=== PATIENT | female | born 1930 | race Asian ===

== ENCOUNTER → 2016-10-29 | Outpatient (CLI) | payer MEDICARE, BC ==
[2016-10-29 08:13] LABS: PROTHROMBIN TIME 45.4 SEC (11.4-15.4)
== END ==
LOC: OD 07:03
PROVIDERS: ATTEND Internal Medicine
DX: I48.0 Paroxysmal atrial fibrillation (principal)
CPT/HCPCS: 36415; 85610

== ENCOUNTER → 2016-11-08 | Outpatient (CLI) | payer MEDICARE, BC | LOC: OD 07:09 | PROVIDERS: ATTEND Internal Medicine | DX: I48.0 Paroxysmal atrial fibrillation (principal) | CPT/HCPCS: 36415; 85610 ==

== ENCOUNTER 2016-11-14 09:05 | Inpatient (IN) | payer MEDICARE, BC ==
[2016-11-14] MEDS ORDERED: NORMAL SALINE 1000 ML 1,000 ML IV ONE (10:11)
--- NOTE | 2016-11-14 10:34 | ER Document Report ---
ED General - General Chief Complaint: Cold Symptoms Stated Complaint: COLD SYMPTOMS Mode of Arrival: Ambulatory Information source: Patient, Relative Notes: 86-year-old female presents with complaints of cough sneezing and runny nose over the past 3 days with weakness today. She denies any chest pain shortness breath difficulty breathing nausea vomiting fevers or chills TRAVEL OUTSIDE OF THE [place] IN LAST 30 DAYS: No - HPI Onset: Other - Three-day duration Onset/Duration: Persistent Quality of pain: No pain Severity: Mild Pain Level: Denies Associated symptoms: Nonproductive cough, Sinus pain/drainage Exacerbated by: Denies Relieved by: Denies Similar symptoms previously: No Recently seen / treated by doctor: No - Related Data Allergies/Adverse Reactions: NSAIDS (Non-Steroidal Anti-Inflamma [Nsaids] Allergy (Severe, Verified 11/14/16 09:22) Past Medical History - Social History Smoking Status: Former Smoker Cigarette use (# per day): No Chew tobacco use (# tins/day): No Smoking Education Provided: No Frequency of alcohol use: None Drug Abuse: None Family History: Reviewed & Not Pertinent Patient has suicidal ideation: No Patient has homicidal ideation: No - Past Medical History Cardiac Medical History: Reports: Hx Atrial Fibrillation, Hx Coronary Artery Disease, Hx Hypertension Denies: Hx Heart Attack Pulmonary Medical History: Reports: Hx Asthma Denies: Hx Bronchitis, Hx COPD, Hx Pneumonia, Hx Tuberculosis Neurological Medical History: Denies: Hx Cerebrovascular Accident, Hx Seizures Renal/ Medical History: Denies: Hx Peritoneal Dialysis Musculoskeltal Medical History: 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 Denies: Hx Hysterectomy, Hx Pacemaker - Immunizations Hx Diphtheria, Pertussis, Tetanus Vaccination: Yes Hx Pneumococcal Vaccination: 08/27/07 Review of Systems - Review of Systems Notes: REVIEW OF SYSTEMS: CONSTITUTIONAL : Denies fever, chills, or sweats. Denies recent illness. EENT: Admits runny nose CARDIOVASCULAR: Denies chest pain. Denies palpitations or racing or irregular heart beat. Denies ankle edema. RESPIRATORY: Admits to cough GASTROINTESTINAL: Denies abdominal pain or distention. Denies nausea, vomiting , or diarrhea. Denies blood in vomitus, stools, or per rectum. Denies black, tarry stools. Denies constipation. GENITOURINARY: Denies difficulty urinating, painful urination, burning, frequency, blood in urine, or discharge. FEMALE GENITOURINARY: Denies vaginal bleeding, heavy or abnormal periods, irregular periods. Denies vaginal discharge or odor. MUSCULOSKELETAL: Denies back or neck pain or stiffness. Denies joint pain or swelling. SKIN: Denies rash, lesions or sores. HEMATOLOGIC : Denies easy bruising or bleeding. LYMPHATIC: Denies swollen, enlarged glands. NEUROLOGICAL: Admits weakness PSYCHIATRIC: Denies anxiety or stress. Denies depression, suicidal ideation, or homicidal ideation. ALL OTHER SYSTEMS REVIEWED AND NEGATIVE. Dictation was performed using [employer] voice recognition software PHYSICAL EXAMINATION: GENERAL: Elderly frail appearing female no acute distress HEAD: Atraumatic, normocephalic. EYES: Pupils equal round and reactive to light, extraocular movements intact, conjunctiva are normal. ENT: Nares patent, oropharynx clear without exudates. Moist mucous membranes. NECK: Normal range of motion, supple without lymphadenopathy LUNGS: Breath sounds clear to auscultation bilaterally and equal. No wheezes rales or rhonchi. HEART: Regular rate and rhythm without murmurs ABDOMEN: Soft, nontender, nondistended abdomen. No guarding, no rebound. No masses appreciated. Female : deferred Musculoskeletal: Normal range of motion, no pitting or edema. No cyanosis. NEUROLOGICAL: Cranial nerves grossly intact. Normal speech, normal gait. Normal sensory, motor exams PSYCH: Normal mood, normal affect. SKIN: Warm, Dry, normal turgor, no rashes or lesions noted. Physical Exam - Vital signs Vitals: Temp Pulse Resp BP Pulse Ox 98.7 F 95 16 141/89 H 94 11/14/16 09:11 11/14/16 09:11 11/14/16 09:11 11/14/16 09:11 11/14/16 09:11 Course - Re-evaluation Re-evalutation: 11/14/16 13:55 chest xray is soncistant with pneumonia which would explain pts presentation will admit due to risk factors and weakness and decreased po intake - Vital Signs Vital signs: Temp Pulse Resp BP Pulse Ox 98.7 F 95 16 141/89 H 94 11/14/16 09:11 11/14/16 09:11 11/14/16 09:11 11/14/16 09:11 11/14/16 09:11 - Laboratory Result Diagrams: 11/14/16 10:05 11/14/16 10:05 Laboratory results interpreted by me: 11/14/16 11/14/16 11/14/16 10:05 10:05 10:05 MCHC 31.7 L Seg Neutrophils % 79.3 H Lymphocytes % 11.9 L PT 29.9 H Glucose 113 H Total Bilirubin 2.0 H AST 46 H - Diagnostic Test Radiology reviewed: Image reviewed, Reports reviewed Discharge - Discharge Clinical Impression: Weakness Pneumonia Qualifiers: Pneumonia type: due to unspecified organism Laterality: right Lung location: lower lobe of lung Qualified Code(s): J18.1 - Lobar pneumonia, unspecified organism Condition: Stable Disposition: ADMITTED INPATIENT Admitting Provider: Hospitalist Unit Admitted: Telemetry
[2016-11-14 10:40] LABS: ABSOLUTE BASOPHILS # (AUTO) 0.1 10^3/uL (0.0-0.2); ABSOLUTE LYMPHOCYTES (AUTO) 1.1 10^3/uL (0.5-4.7); ABSOLUTE MONOCYTES (AUTO) 0.7 10^3/uL (0.1-1.4); ABSOLUTE NEUT (AUTO) 7.4 10^3/uL (1.7-8.2); BASOPHILS % (AUTO) 0.8 % (0-2); EOSINOPHILS % (AUTO) 0.1 % (0-6); HEMATOCRIT 45.9 % (36.0-47.0); HEMOGLOBIN 14.5 g/dL (12.0-15.5); HGB HCT DIFFERENCE -2.4; LYMPHOCYTES % (AUTO) 11.9 % (13-45); MEAN CORPUSCULAR HEMOGLOBIN 28.8 pg (27.0-33.4); MEAN CORPUSCULAR HGB CONC 31.7 g/dL (32.0-36.0); MEAN CORPUSCULAR VOLUME 91 fl (80-97); MONOCYTES % (AUTO) 7.9 % (3-13); RED BLOOD COUNT 5.04 10^6/uL (3.72-5.28); RED CELL DISTRIBUTION WIDTH 13.2 % (11.5-14.0); SEGMENTED NEUTROPHILS % (AUTO) 79.3 % (42-78); WHITE BLOOD COUNT 9.3 10^3/uL (4.0-10.5)
[2016-11-14 11:14] LABS: ALANINE AMINOTRANSFERASE 34 U/L (9-52); ALBUMIN 4.5 g/dL (3.5-5.0); ALKALINE PHOSPHATASE 71 U/L (38-126); ANION GAP 12 (5-19); ASPARTATE AMINO TRANSFERASE 46 U/L (14-36); BLOOD UREA NITROGEN 13 mg/dL (7-20); CALCIUM 9.2 mg/dL (8.4-10.2); CARBON DIOXIDE 27 mmol/L (22-30); CHLORIDE 101 mmol/L (98-107); CREATININE RESULT 0.69 mg/dL (0.52-1.25); GLUCOSE 113 mg/dL (75-110); POTASSIUM 4.4 mmol/L (3.6-5.0); SODIUM 139.5 mmol/L (137-145); TOTAL PROTEIN 8.2 g/dL (6.3-8.2)
[2016-11-14] MEDS ORDERED: CEFTRIAXONE 2 GM/D5W RTU 50 ML IV ONE (11:24)
[2016-11-14 11:31] LABS: CREATINE KINASE MB 0.56 ng/mL (<4.55)
[2016-11-14 11:35] LABS: TROPONIN I < 0.012 ng/mL
[2016-11-14] MEDS ORDERED: ACETAMINOPHEN 325 MG TABLET PO PRN (12:25)
[2016-11-14] MEDS ORDERED: IPRATROPIUM/ALBUTEROL 0.5-2.5 MG/3 ML AMPUL NEB PRN (12:25)
[2016-11-14] MEDS ORDERED: NORMAL SALINE 1000 ML 1,000 ML IV PRN (12:25)
[2016-11-14] MEDS ORDERED: BUDESONIDE/FORMOTEROL 160-4.5 MCG 60 PUFF/6 GM MDI IH ONE (12:54)
[2016-11-14 13:06] LABS: PROTHROMBIN TIME 29.9 SEC (11.4-15.4)
[2016-11-14] MEDS ORDERED: HEPARIN SOD (PORCINE) 5,000 UNIT/ML 1 ML SYRINGE SUBCUT SCH (14:00)
[2016-11-14] MEDS: METHYLPREDNISOLONE INJ 125 MG/2 ML SDV IV SCH ×2 (14:30→22:34)
[2016-11-14 14:54] LABS: APPEARANCE,URINE CLEAR; BILIRUBIN,URINE NEGATIVE (NEGATIVE); GLUCOSE, URINE NEGATIVE (NEGATIVE); KETONES,URINE 20 mg/dL (NEGATIVE); LEUKOCYTE ESTERASE,URINE NEGATIVE (NEGATIVE); NITRITE,URINE NEGATIVE (NEGATIVE); PROTEIN,URINE 30 mg/dL (NEGATIVE); URINE SPECIFIC GRAVITY 1.013; UROBILINOGEN,URINE NEGATIVE mg/dL (<2.0)
--- NOTE | 2016-11-14 14:55 | PDOC H&P ---
History of Present Illness Admission Date/PCP: 11/14/16 12:25 CELIA DORANTES MD Patient complains of: Cough and shortness of breath History of Present Illness: GENNY INFANTE is a 86 year old female with a history of chronic controlled asthma presented to [facility] ED this morning accompanied by her , complaining of worsen upper respiratory symptoms, cough and shortness of breath. She was found to have a right lower lobe infiltrate on chest xray. She was mildly tachycardic with a room air oxygen saturation of 91%. She states her symptoms began 4 days ago and have worsened despite using her rescue nebulizer and otc mucinex. She denies any fevers or chills. She denies any other symptoms. Her dyspnea has improved with one nebulizer treatment. Past Medical History Cardiac Medical History: Reports: Atrial Fibrillation, Coronary Artery Disease, Hypertension Denies: Myocardial Infarction Pulmonary Medical History: Reports: Asthma Denies: Bronchitis, Chronic Obstructive Pulmonary Disease (COPD), Pneumonia, Tuberculosis EENT Medical History: Reports: None Neurological Medical History: Reports: None Denies: Seizures Endocrine Medical History: Reports: None Renal/ Medical History: Reports: None Malignancy Medical History: Reports: None GI Medical History: Reports: None Musculoskeltal Medical History: Reports: Arthritis - r shoulder Skin Medical History: Reports: None Psychiatric Medical History: Reports: None Traumatic Medical History: Reports: None Hematology: Reports: Anemia Infectious Medical History: Reports: None Past Surgical History Past Surgical History: Reports: Cholecystectomy Denies: Hysterectomy, Pacemaker Social History Information Source: Patient Lives with: Spouse/Significant other Smoking Status: Former Smoker Number of Years Smokin Frequency of Alcohol Use: None Hx Recreational Drug Use: No Hx Prescription Drug Abuse: No - Advance Directive Resuscitation Status: Full Code Family History Family History: Hypertension Parental Family History Reviewed: Yes Children Family History Reviewed: Yes Sibling(s) Family History Reviewed.: Yes Medication/Allergy Home Medications: Albuterol Sulfate [Proair HFA] 1 puff PO QHS PRN 11/14/16 Furosemide [Lasix 20 mg Tablet] 20 mg PO DAILY 11/14/16 Metoprolol Tartrate [Lopressor 50 mg Tablet] 25 mg PO BID 11/14/16 [place]-3 Acid Ethyl Esters [Lovaza 1 gm Capsule] 1 gm PO DAILY 11/14/16 Simvastatin [Zocor 20 mg Tablet] 20 mg PO DAILY 11/14/16 Warfarin Sodium 5 mg PO Q3D 11/14/16 Allergies/Adverse Reactions: NSAIDS (Non-Steroidal Anti-Inflamma [Nsaids] Allergy (Severe, Verified 11/14/16 09:22) Review of Systems Constitutional: ABSENT: chills, fever(s), headache(s), weight gain, weight loss Eyes: ABSENT: visual disturbances Ears: ABSENT: hearing changes Cardiovascular: ABSENT: chest pain, dyspnea on exertion, edema, orthropnea, palpitations Respiratory: PRESENT: cough, dyspnea, sputum Gastrointestinal: ABSENT: abdominal pain, constipation, diarrhea, hematemesis, hematochezia, nausea, vomiting Genitourinary: ABSENT: dysuria, hematuria Musculoskeletal: ABSENT: joint swelling Neurological: ABSENT: abnormal gait, abnormal speech, confusion, dizziness, focal weakness, syncope Psychiatric: ABSENT: anxiety, depression, homidical ideation, suicidal ideation Hematologic/Lymphatic: ABSENT: easy bleeding, easy bruising Physical Exam Vital Signs: Temp Pulse Resp BP Pulse Ox 98.7 F 95 24 H 134/78 H 96 11/14/16 09:11 11/14/16 09:11 11/14/16 14:00 11/14/16 12:35 11/14/16 14:00 General appearance: PRESENT: no acute distress, well-developed, well-nourished Head exam: PRESENT: atraumatic, normocephalic Eye exam: PRESENT: conjunctiva pink, EOMI, PERRLA. ABSENT: scleral icterus Ear exam: PRESENT: normal external ear exam Mouth exam: PRESENT: moist, tongue midline Neck exam: ABSENT: carotid bruit, JVD, lymphadenopathy, thyromegaly Respiratory exam: PRESENT: decreased breath sounds - right base, rhonchi, symmetrical, unlabored, wheezes Cardiovascular exam: PRESENT: RRR. ABSENT: diastolic murmur, rubs, systolic murmur Pulses: PRESENT: normal dorsalis pedis pul Vascular exam: PRESENT: normal capillary refill GI/Abdominal exam: PRESENT: normal bowel sounds, soft. ABSENT: distended, guarding, mass, organolmegaly, rebound, tenderness Rectal exam: PRESENT: deferred Extremities exam: PRESENT: full ROM. ABSENT: calf tenderness, clubbing, pedal edema Neurological exam: PRESENT: alert, awake, oriented to person, oriented to place , oriented to time, oriented to situation, CN II-XII grossly intact. ABSENT: motor sensory deficit Psychiatric exam: PRESENT: appropriate affect, normal mood. ABSENT: homicidal ideation, suicidal ideation Skin exam: PRESENT: dry, intact, warm. ABSENT: cyanosis, rash Results Impressions: Chest X-Ray 11/14/16 09:32 IMPRESSION: New patchy infiltrate or trace pleural fluid right costophrenic angle. Heavy retrocardiac markings on the left also concerning for patchy infiltrate. 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 Tapering IV steroids (4) DVT prophylaxis Is this a current diagnosis for this admission?: YesPlan: Patient is on Coumadin - Time Time Spent: 50 to 70 Minutes Critical Time spent with patient: 25-34 minutes Medications reviewed and adjusted accordingly: Yes Anticipated discharge: Home
[2016-11-14] MEDS ORDERED: (PENDING PHARMACY ID) (Mometasone/Formoterol [Dulera 100 Mcg/5 Mcg Inhaler] 2 PUFF) IH SCH (18:00)
[2016-11-14] MEDS: METOPROLOL TARTRATE 50 MG TABLET PO SCH (18:23)
[2016-11-14] MEDS: GUAIFENESIN 600 MG TABLET.SA PO SCH (22:34)
[2016-11-14] MEDS: MONTELUKAST SODIUM 10 MG TABLET PO SCH (22:34)
[2016-11-14] MEDS: BUDESONIDE/FORMOTEROL 160-4.5 MCG 60 PUFF/6 GM MDI IH SCH (22:34)
[2016-11-14] MEDS: WARFARIN SODIUM 2.5 MG TABLET PO SCH (22:34)
[2016-11-15] MEDS: METHYLPREDNISOLONE INJ 125 MG/2 ML SDV IV SCH ×3 (06:10→22:46)
[2016-11-15] MEDS: METOPROLOL TARTRATE 50 MG TABLET PO SCH ×2 (06:11→17:53)
[2016-11-15 07:00] LABS: ABSOLUTE LYMPHOCYTES (AUTO) 1.2 10^3/uL (0.5-4.7); ABSOLUTE MONOCYTES (AUTO) 0.1 10^3/uL (0.1-1.4); ABSOLUTE NEUT (AUTO) 6.6 10^3/uL (1.7-8.2); BASOPHILS % (AUTO) 0.3 % (0-2); HEMATOCRIT 42.6 % (36.0-47.0); HGB HCT DIFFERENCE -0.6; LYMPHOCYTES % (AUTO) 14.8 % (13-45); MEAN CORPUSCULAR HEMOGLOBIN 29.5 pg (27.0-33.4); MEAN CORPUSCULAR HGB CONC 32.8 g/dL (32.0-36.0); MEAN CORPUSCULAR VOLUME 90 fl (80-97); MONOCYTES % (AUTO) 1.3 % (3-13); RED BLOOD COUNT 4.73 10^6/uL (3.72-5.28); RED CELL DISTRIBUTION WIDTH 12.8 % (11.5-14.0); SEGMENTED NEUTROPHILS % (AUTO) 83.6 % (42-78); WHITE BLOOD COUNT 7.9 10^3/uL (4.0-10.5)
[2016-11-15 07:19] LABS: ANION GAP 19 (5-19); BLOOD UREA NITROGEN 18 mg/dL (7-20); CALCIUM 9.1 mg/dL (8.4-10.2); CARBON DIOXIDE 19 mmol/L (22-30); CHLORIDE 105 mmol/L (98-107); CREATININE RESULT 0.69 mg/dL (0.52-1.25); GLUCOSE 166 mg/dL (75-110); POTASSIUM 3.9 mmol/L (3.6-5.0); SODIUM 142.9 mmol/L (137-145)
[2016-11-15] MEDS ORDERED: SIMVASTATIN 10 MG TABLET PO SCH (10:00)
[2016-11-15] MEDS: FUROSEMIDE 20 MG TABLET PO SCH (10:17)
[2016-11-15] MEDS: CEFTRIAXONE 1 GM/D5W RTU 50 ML IV SCH (10:17)
[2016-11-15] MEDS: GUAIFENESIN 600 MG TABLET.SA PO SCH ×2 (10:17→22:46)
[2016-11-15] MEDS: BUDESONIDE/FORMOTEROL 160-4.5 MCG 60 PUFF/6 GM MDI IH SCH ×2 (10:18→22:46)
[2016-11-15] MEDS: AZITHROMYCIN 500 MG in DEXTROSE 5%-WATER 250 ML IV SCH (11:14)
--- NOTE | 2016-11-15 16:34 | PDOC PROGRESS REPORT ---
Subjective Progress Note for:: 11/15/16 Subjective:: Patient is seen on morning rounds. She is sitting out of bed in chair. is at bedside. She continues to have congested cough but is able to be productive since starting nebulizer. She states her breathing is improved. She denies chest pain or dyspnea. She denies any nausea, vomiting, or diarrhea. Physical Exam Vital Signs: Temp Pulse Resp BP Pulse Ox 97.6 F 101 H 18 151/99 H 96 11/15/16 15:04 11/15/16 15:34 11/15/16 15:34 11/15/16 15:04 11/15/16 15:34 Pulse Oximeter Continuous Start: 11/14/16 12: 25 Freq: RTQ4 Status: Active Document 11/15/16 15:34 LDA (Rec: 11/15/16 15:35 [email or web address]) Pulse Oximetry Assessment Oxygen Saturation (92-100) 96 Oxygen Delivery Method Room Air Fraction of Inspired Oxygen (FIO2) 21 Equipment Usage Equipment in Use Continuous SpO2 Machine # [id number] Intake & Output 11/14/16 11/15/16 11/16/16 06:59 06:59 06:59 Intake Total 500 900 Output Total 500 Balance 500 400 Weight 60.1 kg General appearance: PRESENT: no acute distress, well-developed, well-nourished Head exam: PRESENT: atraumatic, normocephalic Eye exam: PRESENT: conjunctiva pink, EOMI, PERRLA. ABSENT: scleral icterus Ear exam: PRESENT: normal external ear exam Mouth exam: PRESENT: moist, tongue midline Neck exam: ABSENT: carotid bruit, JVD, lymphadenopathy, thyromegaly Respiratory exam: PRESENT: rhonchi, symmetrical, tachypnea. ABSENT: rales, wheezes Cardiovascular exam: PRESENT: RRR. ABSENT: diastolic murmur, rubs, systolic murmur Pulses: PRESENT: normal dorsalis pedis pul Vascular exam: PRESENT: normal capillary refill GI/Abdominal exam: PRESENT: normal bowel sounds, soft. ABSENT: distended, guarding, mass, organolmegaly, rebound, tenderness Rectal exam: PRESENT: deferred Extremities exam: PRESENT: full ROM. ABSENT: calf tenderness, clubbing, pedal edema Neurological exam: PRESENT: alert, awake, oriented to person, oriented to place , oriented to time, oriented to situation, CN II-XII grossly intact. ABSENT: motor sensory deficit Psychiatric exam: PRESENT: appropriate affect, normal mood. ABSENT: homicidal ideation, suicidal ideation Skin exam: PRESENT: dry, intact, warm. ABSENT: cyanosis, rash Results Laboratory Results: 11/15/16 06:36 11/15/16 06:36 11/15/16 11/15/16 06:36 06:36 WBC 7.9 RBC 4.73 Hgb 14.0 Hct 42.6 MCV 90 MCH 29.5 MCHC 32.8 RDW 12.8 Plt Count 181 Seg Neutrophils % 83.6 H Lymphocytes % 14.8 Monocytes % 1.3 L Eosinophils % 0.0 Basophils % 0.3 Absolute Neutrophils 6.6 Absolute Lymphocytes 1.2 Absolute Monocytes 0.1 Absolute Eosinophils 0.0 Absolute Basophils 0.0 Sodium 142.9 Potassium 3.9 Chloride 105 Carbon Dioxide 19 L Anion Gap 19 BUN 18 Creatinine 0.69 Est GFR ( Amer) > 60 Est GFR (Non-Af Amer) > 60 Glucose 166 H Calcium 9.1 Impressions: Chest X-Ray 11/14/16 09:32 IMPRESSION: New patchy infiltrate or trace pleural fluid right costophrenic angle. Heavy retrocardiac markings on the left also concerning for patchy infiltrate. Assessment & Plan - Diagnosis (1) Atrial fibrillation Qualifiers: Atrial fibrillation type: paroxysmal Qualified Code(s): I48.0 - Paroxysmal atrial fibrillation Plan: Patient has paroxymal atrial fibrillation. RVR increased her metoprolol 50 mg bid (2) Community acquired pneumonia Is this a current diagnosis for this admission?: YesPlan: Patient was placed on azithromycin, ceftriazone, nebulizer treatments and IV steroids. 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 Tapering IV steroids (4) DVT prophylaxis Is this a current diagnosis for this admission?: YesPlan: Patient is on Coumadin - Time Time Spent with patient: 25-34 minutes Critical Time spent with patient: 15-24 minutes Medications reviewed and adjusted accordingly: Yes Anticipated discharge: Home - Inpatient Certification Based on my medical assessment, after consideration of the patient's comorbidities, presenting symptoms, or acuity I expect that the services needed warrant INPATIENT care.: Yes I certify that my determination is in accordance with my understanding of Medicare's requirements for reasonable and necessary INPATIENT services [42 CFR 412.3e].: Yes
[2016-11-15] MEDS: WARFARIN SODIUM 2.5 MG TABLET PO SCH (22:46)
[2016-11-15] MEDS: MONTELUKAST SODIUM 10 MG TABLET PO SCH (22:46)
[2016-11-16] MEDS: METOPROLOL TARTRATE 50 MG TABLET PO SCH (05:36)
[2016-11-16] MEDS: METHYLPREDNISOLONE INJ 125 MG/2 ML SDV IV SCH (05:36)
[2016-11-16] MEDS: GUAIFENESIN 600 MG TABLET.SA PO SCH (09:30)
[2016-11-16] MEDS: FUROSEMIDE 20 MG TABLET PO SCH (09:30)
[2016-11-16] MEDS: BUDESONIDE/FORMOTEROL 160-4.5 MCG 60 PUFF/6 GM MDI IH SCH (09:31)
[2016-11-16] MEDS: CEFTRIAXONE 1 GM/D5W RTU 50 ML IV SCH (09:31)
[2016-11-16] MEDS ORDERED: METHYLPREDNISOLONE INJ 125 MG/2 ML SDV IV SCH (10:00)
[2016-11-16] MEDS: AZITHROMYCIN 500 MG in DEXTROSE 5%-WATER 250 ML IV SCH (10:27)
--- NOTE | 2016-11-16 11:13 | PDOC DISCHARGE SUMMARY ---
General - Admit/Disc Date/PCP Admission Date/Primary Care Provider: 11/14/16 12:25 CELIA DORANTES MD Discharge Date: 11/16/16 - Discharge Diagnosis (1) Atrial fibrillation Summary: Patient with chronic atrial fibrillation on Warfarin and Coumadin (2) Community acquired pneumonia Is this a current diagnosis for this admission?: YesSummary: Patient will be discharged on Ceftin 500 mg po bid x 8 days. 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 Is this a current diagnosis for this admission?: YesSummary: Prednisone taper, continue inhalers (4) DVT prophylaxis Is this a current diagnosis for this admission?: Yes - Additional Information Resuscitation Status: Full Code Discharge Diet: Regular Discharge Activity: Activity As Tolerated, Balance Activity w/Rest Home Medications: Albuterol Sulfate [Proair HFA] 1 puff PO QHS PRN 11/14/16 Furosemide [Lasix 20 mg Tablet] 20 mg PO DAILY 11/14/16 Metoprolol Tartrate [Lopressor 50 mg Tablet] 25 mg PO BID 11/14/16 [place]-3 Acid Ethyl Esters [Lovaza 1 gm Capsule] 1 gm PO DAILY 11/14/16 Simvastatin [Zocor 20 mg Tablet] 20 mg PO DAILY 11/14/16 Warfarin Sodium 5 mg PO Q3D 11/14/16 Acetaminophen [Tylenol 325 mg Tablet] 650 mg PO Q4HP PRN tablet 11/16/16 Cefuroxime Axetil [Ceftin 500 mg Tablet] 500 mg PO BID #16 tablet 11/16/16 Guaifenesin [Mucinex Sr 600 mg Tablet.sa] 600 mg PO Q12 #20 tablet.sa 11/16/16 Prednisone [Deltasone] 20 mg PO ASDIR PRN #9 tablet 11/16/16 Warfarin Sodium [Coumadin 2.5 mg Tablet] 2.5 mg PO Q3DAYS@2200 tablet 11/16/16 History of Present Illness History of Present Illness: GENNY INFANTE is a 86 year old female with a history of chronic controlled asthma presented to [facility] ED this morning accompanied by her , complaining of worsen upper respiratory symptoms, cough and shortness of breath. She was found to have a right lower lobe infiltrate on chest xray. She was mildly tachycardic with a room air oxygen saturation of 91%. She states her symptoms began 4 days ago and have worsened despite using her rescue nebulizer and otc mucinex. She denies any fevers or chills. She denies any other symptoms. Her dyspnea has improved with one nebulizer treatment. Hospital Course Hospital Course: Patient was referred to the Hospitalist service for admission from the ER physician. She was admitted to the telemetry unit. She was started on broad spectrum antibiotics, and nebulizer treatments. Her oxygenation improved. She was able to be weaned from the oxygen the following day. Her cough continued to improve. She remained afebrile. Today she has been transitioned to oral antibiotic therapy and will be discharged home. Physical Exam Vital Signs: Temp Pulse Resp BP Pulse Ox 97.6 F 116 H 20 80/61 L 97 11/16/16 08:14 11/16/16 08:14 11/16/16 08:14 11/16/16 08:14 11/16/16 08:14 Pulse Oximeter Continuous Start: 11/14/16 12: 25 Freq: RTQ4 Status: Active Document 11/16/16 04:54 [facility] (Rec: 11/16/16 04:54 [facility] [id number]) Pulse Oximetry Assessment Equipment Usage Equipment Standby Continuous SpO2 Machine # [id number] Intake & Output 11/15/16 11/16/16 11/17/16 06:59 06:59 06:59 Intake Total 500 1510 120 Output Total 1000 Balance 500 510 120 Weight 60.1 kg 60.1 kg General appearance: PRESENT: no acute distress, well-developed, well-nourished Head exam: PRESENT: atraumatic, normocephalic Eye exam: PRESENT: conjunctiva pink, EOMI, PERRLA. ABSENT: scleral icterus Ear exam: PRESENT: normal external ear exam Mouth exam: PRESENT: moist, tongue midline Neck exam: PRESENT: carotid bruit Respiratory exam: PRESENT: rhonchi, symmetrical, unlabored Cardiovascular exam: PRESENT: irregular rhythm Pulses: PRESENT: normal dorsalis pedis pul Vascular exam: PRESENT: normal capillary refill GI/Abdominal exam: PRESENT: normal bowel sounds, soft. ABSENT: distended, guarding, mass, organolmegaly, rebound, tenderness Rectal exam: PRESENT: deferred Extremities exam: PRESENT: full ROM. ABSENT: calf tenderness, clubbing, pedal edema Neurological exam: PRESENT: alert, awake, oriented to person, oriented to place , oriented to time, oriented to situation, CN II-XII grossly intact. ABSENT: motor sensory deficit Psychiatric exam: PRESENT: appropriate affect, normal mood. ABSENT: homicidal ideation, suicidal ideation Skin exam: PRESENT: dry, intact, warm. ABSENT: cyanosis, rash Results Laboratory Results: 11/15/16 06:36 11/15/16 06:36 Impressions: Chest X-Ray 11/14/16 09:32 IMPRESSION: New patchy infiltrate or trace pleural fluid right costophrenic angle. Heavy retrocardiac markings on the left also concerning for patchy infiltrate. Qualifiers PATEINT BEING DISCHARGED WITH ANY OF THE FOLLOWING DIAGNOSIS?: No HF Pt with Afib discharged with Warfarin?: Yes Plan Discharge Plan: Patient will be discharged home with . Follow up with primary care provider in one week. Time Spent: Less than 30 Minutes
[2016-11-16 11:57] VITALS: BP 141/96
[2016-11-16] MEDS ORDERED: WARFARIN SODIUM 2.5 MG TABLET PO SCH (22:00)
== END 2016-11-16 13:49 | disposition home or self-care (01) | DRG 195 ==
LOC: ER 09:05 → EH 12:25 → UNDOADMIN 12:40 → EH 12:40 → 4N 16:07
PROVIDERS: ADMIT Family Medicine; ATTEND Family Medicine
DX: J18.1 Lobar pneumonia, unspecified organism (principal); J45.909 Unspecified asthma, uncomplicated; I25.10 Atherosclerotic heart disease of native coronary artery without angina pectoris; I10 Essential (primary) hypertension; I48.0 Paroxysmal atrial fibrillation; M19.90 Unspecified osteoarthritis, unspecified site; Z79.02 Long term (current) use of antithrombotics/antiplatelets; Z79.51 Long term (current) use of inhaled steroids; Z87.891 Personal history of nicotine dependence
CPT/HCPCS: 36415; 71020; 80048; 80053; 81001; 82550; 82553; 84484; 85025; 85610; 87070; 87205; 87804; 94762; 94799; J0456; J0696; J2930; J3490; J7030; J7060

== ENCOUNTER → 2016-12-04 | Outpatient (CLI) | payer MEDICARE, BC ==
[2016-12-04 11:55] LABS: PROTHROMBIN TIME 55.9 SEC (11.4-15.4)
== END ==
LOC: OD 10:27
PROVIDERS: ATTEND Internal Medicine
DX: I48.0 Paroxysmal atrial fibrillation (principal)
CPT/HCPCS: 36415; 85610

== ENCOUNTER → 2016-12-31 | Outpatient (CLI) | payer MEDICARE, BC ==
[2016-12-31 08:48] LABS: PROTHROMBIN TIME 66.6 SEC (11.4-15.4)
== END ==
LOC: OD 07:35
PROVIDERS: ATTEND Internal Medicine
DX: I48.0 Paroxysmal atrial fibrillation (principal)
CPT/HCPCS: 36415; 85610

== ENCOUNTER → 2017-01-10 | Outpatient (CLI) | payer MEDICARE, BC ==
[2017-01-10 08:41] LABS: PROTHROMBIN TIME 42.7 SEC (11.4-15.4)
== END ==
LOC: OD 07:18
PROVIDERS: ATTEND Internal Medicine
DX: I48.0 Paroxysmal atrial fibrillation (principal)
CPT/HCPCS: 36415; 85610

== ENCOUNTER → 2017-01-24 | Outpatient (CLI) | payer MEDICARE, BC ==
[2017-01-24 08:16] LABS: PROTHROMBIN TIME 38.2 SEC (11.4-15.4)
== END ==
LOC: OD 07:13
PROVIDERS: ATTEND Internal Medicine
DX: I48.0 Paroxysmal atrial fibrillation (principal)
CPT/HCPCS: 36415; 85610

== ENCOUNTER 2017-02-02 18:48 | Inpatient (IN) | payer MEDICARE, BC ==
[2017-02-02] MEDS ORDERED: NORMAL SALINE 1000 ML 1,000 ML IV ONE (21:17)
--- NOTE | 2017-02-02 21:25 | ER Document Report ---
ED General - General Chief Complaint: General Weakness Stated Complaint: WEAKNESS Notes: She is an 86-year-old female past medical history of A. fib with current anticoagulation with Eliquis and rate control with metoprolol 25 mg twice a day who presents with feeling generally weak. Patient is a very vague historian and states that she has not felt well ever since she was discharged from the hospital in October for pneumonia. Describes a feeling of constant feeling fatigued and weak. States that this has made so that is difficult for her to walk around her house. States today she felt even worse than normal which is what prompted her to come to the emergency department. The only specific symptoms she provides is palpitations. Nothing improves or worsens her symptoms. She does not have a history of similar symptoms in the past. She has seen her primary care doctor repeatedly regarding today's concerns. TRAVEL OUTSIDE OF THE [place] IN LAST 30 DAYS: No - Related Data Allergies/Adverse Reactions: NSAIDS (Non-Steroidal Anti-Inflamma [Nsaids] Allergy (Severe, Verified 02/02/17 19:58) Past Medical History - General Information source: Patient - Social History Smoking Status: Never Smoker Frequency of alcohol use: None Drug Abuse: None Lives with: Spouse/Significant other Family History: Reviewed & Not Pertinent, Hypertension Patient has suicidal ideation: No Patient has homicidal ideation: No - Past Medical History Cardiac Medical History: Reports: Hx Atrial Fibrillation, Hx Coronary Artery Disease, Hx Hypertension Denies: Hx Heart Attack Pulmonary Medical History: Reports: Hx Asthma Denies: Hx Bronchitis, Hx COPD, Hx Pneumonia, Hx Tuberculosis Neurological Medical History: Denies: Hx Cerebrovascular Accident, Hx Seizures Renal/ Medical History: Denies: Hx Peritoneal Dialysis Musculoskeltal Medical History: Reports Hx Arthritis - r shoulder Psychiatric Medical History: Denies: Hx Depression Past Surgical History: Reports: Hx Cholecystectomy. Denies: Hx Hysterectomy, Hx Pacemaker - Immunizations Hx Diphtheria, Pertussis, Tetanus Vaccination: Yes Hx Pneumococcal Vaccination: 08/27/07 Review of Systems - Review of Systems Notes: Constitutional: Negative for fever. HENT: Negative for sore throat. Eyes: Negative for visual changes. Cardiovascular: Negative for chest pain. Respiratory: Negative for shortness of breath. Gastrointestinal: Negative for abdominal pain, vomiting or diarrhea. Genitourinary: Negative for dysuria. Musculoskeletal: Negative for back pain. Skin: Negative for rash. Neurological: Negative for headaches, weakness or numbness. 10 point ROS negative except as marked above and in HPI. Physical Exam - Vital signs Vitals: Temp Pulse Resp BP Pulse Ox 98.2 F 50 L 20 164/93 H 98 02/02/17 18:59 02/02/17 18:59 02/02/17 18:59 02/02/17 18:59 02/02/17 18:59 Interpretation: Hypertensive, Tachycardic Notes: PHYSICAL EXAMINATION: GENERAL: Well-appearing, well-nourished and in no acute distress. HEAD: Atraumatic, normocephalic. EYES: Pupils equal round and reactive to light, extraocular movements intact, sclera anicteric, conjunctiva are normal. ENT: nares patent, oropharynx clear without exudates. Dry mucous membranes. NECK: Normal range of motion, supple without lymphadenopathy LUNGS: Breath sounds clear to auscultation bilaterally and equal. No wheezes rales or rhonchi. HEART: Irregularly irregular tachycardia without murmurs ABDOMEN: Soft, nontender, normoactive bowel sounds. No guarding, no rebound. No masses appreciated. EXTREMITIES: Normal range of motion, no pitting or edema. No cyanosis. NEUROLOGICAL: No focal neurological deficits. Moves all extremities spontaneously and on command. PSYCH: Normal mood, normal affect. SKIN: Warm, Dry, normal turgor, no rashes or lesions noted. Course - Re-evaluation Re-evalutation: 02/02/17 21:20 Patient presents with complaint of feeling generally weak. She denies any focal symptoms including chest pain, shortness of breath, nausea, vomiting, focal weakness or numbness. States she's feels just "bad". Physical examination is remarkable only for A. fib with rapid ventricular response. Will obtain laboratories, initiate IV fluids to see if this will control patient 's tachycardia and this fails will proceed with diltiazem. 02/03/2300 tachycardia has failed to improve with a 500 mL fluid bolus. She remains nontoxic in appearance although remains severely tachycardic. A diltiazem drip will be initiated at this time for rate control. Her laboratories demonstrate only an elevated proBNP and I do not have an old for comparison. Chest x-ray does show findings that I believe are consistent with vascular congestion although radiology has read this as chronic interstitial lung disease I diagnosed the patient does not currently carry that could contribute to why she has felt so fatigued over the past 3 months. 0031- Ray control has been treated now total 7.5 mg per hour of diltiazem infusion. Patient states this he symptomatically feels much improved. I discussed this case with Dr. Soliz who is accepted this patient for admission. - Vital Signs Vital signs: Temp Pulse Resp BP Pulse Ox 98.2 F 50 L 19 133/81 H 95 02/02/17 18:59 02/02/17 18:59 02/03/17 00:01 02/03/17 00:01 02/03/17 00:01 - Laboratory Result Diagrams: 02/02/17 21:10 02/02/17 21:10 Laboratory results interpreted by me: 02/02/17 02/02/17 02/02/17 21:10 21:10 21:10 RDW 14.5 H PT 43.4 H Potassium 3.4 L Glucose 131 H NT-Pro-B Natriuret Pep Urine Protein Urine Ketones Ur Leukocyte Esterase Urine Ascorbic Acid 02/02/17 02/02/17 21:10 21:50 RDW PT Potassium Glucose NT-Pro-B Natriuret Pep 3520 H Urine Protein 30 H Urine Ketones TRACE H Ur Leukocyte Esterase SMALL H Urine Ascorbic Acid 40 H - Diagnostic Test Radiology reviewed: Image reviewed, Reports reviewed Radiology results interpreted by me: 02/02/17 21:20 Chest x-ray: Vascular congestion - EKG Interpretation by Me Additional EKG results interpreted by me: 02/02/17 21:21 A. fib with rapid ventricular response. Rate 141. No ST elevations or depressions. QTC is 435. Critical Care Note - Critical Care Note Total time excluding time spent on procedures (mins): 36 Comments: Critical care time spent obtaining history from patient or surrogate, discussions with consultants, development of treatment plan with patient or surrogate, evaluation of patient's response to treatment, examination of patient , ordering and performing treatments and interventions, ordering and review of laboratory studies, re-evaluation of patient's condition, ordering and review of radiographic studies and review of old charts Discharge - Discharge Clinical Impression: Atrial fibrillation with rapid ventricular response Fatigue Qualifiers: Fatigue type: chronic, unspecified Qualified Code(s): R53.82 - Chronic fatigue , unspecified Congestive heart failure Qualifiers: Congestive heart failure type: unspecified congestive heart failure type Congestive heart failure chronicity: unspecified congestive heart failure chronicity Qualified Code(s): I50.9 - Heart failure, unspecified Condition: Fair Disposition: ADMITTED INPATIENT Admitting Provider: Hospitalist - [facility] Admitted: [facility] Referrals: CELIA DORANTES MD [Primary Care Provider] - Follow up as needed
[2017-02-02 21:48] LABS: PROTHROMBIN TIME 43.4 SEC (11.4-15.4)
[2017-02-02 21:52] LABS: ABSOLUTE BASOPHILS # (AUTO) 0.1 10^3/uL (0.0-0.2); ABSOLUTE EOSINOPHILS # (AUTO) 0.2 10^3/uL (0.0-0.6); ABSOLUTE LYMPHOCYTES (AUTO) 1.2 10^3/uL (0.5-4.7); ABSOLUTE MONOCYTES (AUTO) 0.6 10^3/uL (0.1-1.4); ABSOLUTE NEUT (AUTO) 3.6 10^3/uL (1.7-8.2); BASOPHILS % (AUTO) 1.1 % (0-2); EOSINOPHILS % (AUTO) 3.3 % (0-6); HEMATOCRIT 40.4 % (36.0-47.0); HEMOGLOBIN 13.1 g/dL (12.0-15.5); HGB HCT DIFFERENCE -1.1; LYMPHOCYTES % (AUTO) 21.5 % (13-45); MEAN CORPUSCULAR HGB CONC 32.5 g/dL (32.0-36.0); MEAN CORPUSCULAR VOLUME 89 fl (80-97); RED BLOOD COUNT 4.54 10^6/uL (3.72-5.28); RED CELL DISTRIBUTION WIDTH 14.5 % (11.5-14.0); SEGMENTED NEUTROPHILS % (AUTO) 64.1 % (42-78); WHITE BLOOD COUNT 5.7 10^3/uL (4.0-10.5)
[2017-02-02 21:57] LABS: ANION GAP 12 (5-19); BLOOD UREA NITROGEN 15 mg/dL (7-20); CALCIUM 9.3 mg/dL (8.4-10.2); CARBON DIOXIDE 27 mmol/L (22-30); CHLORIDE 105 mmol/L (98-107); CREATININE RESULT 0.58 mg/dL (0.52-1.25); GLUCOSE 131 mg/dL (75-110); POTASSIUM 3.4 mmol/L (3.6-5.0); SODIUM 144.3 mmol/L (137-145)
[2017-02-02 22:07] LABS: APPEARANCE,URINE CLEAR; BILIRUBIN,URINE NEGATIVE (NEGATIVE); GLUCOSE, URINE NEGATIVE (NEGATIVE); KETONES,URINE TRACE mg/dL (NEGATIVE); LEUKOCYTE ESTERASE,URINE SMALL (NEGATIVE); NITRITE,URINE NEGATIVE (NEGATIVE); PROTEIN,URINE 30 mg/dL (NEGATIVE); UROBILINOGEN,URINE NEGATIVE mg/dL (<2.0)
[2017-02-02] MEDS ORDERED: DILTIAZEM HCL/D5W 125 ML IV PRN (22:09)
--- NOTE | 2017-02-02 23:57 | EKG REPORT ---
SEVERITY:- ABNORMAL ECG - ATRIAL FIBRILLATION, V-RATE 84-188 CONSIDER ANTERIOR INFARCT REPOLARIZATION ABNORMALITY, PROB RATE RELATED : Confirmed by: Bernard Parkinson 02-Feb-2017 23:56:10
[2017-02-03 00:42] LABS: ADD ON TESTING BLD IN LAB ACKNOWLEDGE
[2017-02-03] MEDS ORDERED: POTASSI CL 20 MEQ/50 ML RIDER 20 MEQ/50 ML RTUPB IV ONE (00:45)
[2017-02-03 01:09] LABS: ALANINE AMINOTRANSFERASE 32 U/L (9-52); ALBUMIN 3.9 g/dL (3.5-5.0); ALKALINE PHOSPHATASE 85 U/L (38-126); ASPARTATE AMINO TRANSFERASE 33 U/L (14-36); BILIRUBIN,DIRECT 0.4 mg/dL (0.0-0.4); BILIRUBIN,TOTAL 1.2 mg/dL (0.2-1.3); MAGNESIUM 1.8 mg/dL (1.6-2.3); TOTAL PROTEIN 6.9 g/dL (6.3-8.2)
[2017-02-03] MEDS ORDERED: DILTIAZEM HCL/D5W 125 ML IV PRN (03:31)
[2017-02-03] MEDS ORDERED: ACETAMINOPHEN 325 MG TABLET PO PRN (03:31)
[2017-02-03] MEDS ORDERED: MAGNESIUM HYDROXIDE SUSP 30 ML UDCUP PO PRN (03:31)
[2017-02-03] MEDS ORDERED: IPRATROPIUM/ALBUTEROL 0.5-2.5 MG/3 ML AMPUL NEB PRN (03:31)
--- NOTE | 2017-02-03 03:47 | PDOC H&P ---
History of Present Illness Admission Date/PCP: 02/03/17 01:01 CELIA DORANTES MD Patient complains of: weakness, palpitations History of Present Illness: GENNY INFANTE is a 86 year old [place] female, with atrial fibrillation, on Coumadin for same, along with hyperlipidemia asthma, and easy bruising, who presents to the emergency room for evaluation of above complaints. Patient has been discussed with emergency room physician who evaluated the patient. She describes a general feeling of weakness and easy fatigability since being hospitalized on our service in October for pneumonia. However, over the last 24 hours the overall feeling has increased significantly, with associated palpitations. There's been no nausea vomiting, fever chills, chest or abdominal pain, diarrhea or dysuria. Was noted to be in atrial fibrillation with rapid ventricular response. Cardizem bolus and drip was required. Currently infusing at 7-1/2 mg per hour. Rate is well controlled. She is resting quietly, without specific complaints other than being somewhat tired. It is 3:30 in the morning. Laboratory results are listed in [employer] and are reviewed. X-ray summary results are listed below, with full report(s) reviewed. . EKG reviewed. And compared to a prior tracing from 07/26/2012. Social history/personal habits: . No children. Retired. Former smoker ; hasn't used tobacco in many years. No alcohol or illicit drug use. Allergies/adverse reactions are listed in [employer] and are reviewed. Home medications Home medications initially autopopulated into [employer] may not accurately reflect patient's true medications, dosages, and/or frequencies. 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 Unfortunately, patient uncertain of medications/dosages/frequencies. REVIEW OF SYSTEMS: Constitutional: See history and present illness. Eyes: Wears glasses. ENT: No swallowing problems or complaints. No hearing problems or complaints. Pulmonary: No current complaints. Cardiovascular: See history and present illness. Gastrointestinal: No current complaints, including nausea or vomiting. Skin: No current complaints, including rashes. Hematologic: Easy bruising. Neurologic: No current complaints, including numbness or tingling. Musculoskeletal: Joint pain from arthritis. Psychiatric: No current complaints, including anxiety or depression. Endocrine: No current complaints, including polyuria. Genitourinary: No current complaints, including dysuria. PHYSICAL EXAMINATION: 4 feet 9 inches tall. 53.5 kg. BMI 25.5 kg/m. Blood pressure 131/68. Pulse 97 and slightly irregular. 96% saturation on room air. Respirations are 18 and unlabored. Temperature 98.2. Slightly overweight otherwise well-nourished well-developed elderly oriental female in no obvious distress other than perhaps mildly anxious. No agitation. Pleasant awake alert and cooperative. Skin is warm and dry. No grossly obvious evidence of rash in areas of skin examined. No subcutaneous nodules palpated. ENT: Hearing grossly normal to normal conversation. Tongue midline on protrusion pink and slightly tacky. Eyes: No scleral icterus. Pupils equal and reactive to light at 4 mm. [place] conjunctivae. Neck is supple and nontender to gentle active range of motion and palpation. Midline trachea. No palpable thyroid nodule mass enlargement or tenderness. Lymphatic: No palpable cervical or clavicular nodes. Neck and lymphatic exams limited by patient body habitus. Psychiatric: Reasonable insight into acute and chronic medical issues. Oriented to time location and why here. Lungs: Auscultation reveals clear and equal breath sounds bilaterally. No use of accessory respiratory muscles. Cardiovascular: Heart slightly irregular rate and rhythm, without gallop murmur or rub. No carotid or abdominal aortic bruits. No ankle or pedal edema. palpable dorsalis pedis pulses. Abdomen: soft, slightly, distended nontender with positive bowel sounds. Unable to adequately evaluate abdomen for masses or organomegaly due to distention. Extremities: Feet are warm and dry. No calf tenderness to compression. No grossly obvious visual evidence of calf swelling. Gentle manipulation of lower extremities fails to reveal any obvious evidence of injury or instability to knees hips or ankles. Neurologic: Moves upper extremities grossly normally. Patellar reflexes absent. Absent Babinski. Light touch is intact at feet. Dorsiflexion and plantarflexion of feet 5 / 5 and symmetric. Past Medical History Cardiac Medical History: Reports: Atrial Fibrillation, Coronary Artery Disease, Hyperlipidema, Hypertension Denies: DVT, Myocardial Infarction, Pulmonary Embolism Pulmonary Medical History: Reports: Asthma Denies: Bronchitis, Chronic Obstructive Pulmonary Disease (COPD), Pneumonia, Tuberculosis Neurological Medical History: Denies: Hemorrhagic CVA, Ischemic CVA, Seizures Endocrine Medical History: Denies: Diabetes Mellitus Type 1, Diabetes Mellitus Type 2, Hyperthyroidism, Hypothyroidism Renal/ Medical History: Reports: None GI Medical History: Denies: Cirrhosis, Gastroesophageal Reflux Disease, Hepatitis, Peptic Ulcer Disease Skin Medical History: Reports: None Psychiatric Medical History: Denies: Alcohol Dependency, Depression, General Anxiety Disorder, Substance Abuse, Tobacco Dependency Hematology: Reports: Anemia, Other - Easy bruising Infectious Medical History: Denies: Hepatitis B, Hepatitis C Past Surgical History Past Surgical History: Reports: Cholecystectomy Denies: Hysterectomy, Pacemaker Social History Information Source: Patient, Emergency Med Personnel, [facility] Records Lives with: Spouse/Significant other Smoking Status: Former Smoker Frequency of Alcohol Use: None Hx Recreational Drug Use: No Drugs: None Hx Prescription Drug Abuse: No - Advance Directive Resuscitation Status: Full Code Surrogate healthcare decision maker:: Family History Family History: Reviewed & Not Pertinent, Hypertension Parental Family History Reviewed: Yes Children Family History Reviewed: NA Sibling(s) Family History Reviewed.: Yes Medication/Allergy Home Medications: Famotidine [Pepcid 20 mg Tablet] 20 mg PO QHS 02/03/17 Hydroxyzine HCl [Atarax 25 mg Tablet] 12.5 mg PO Q8HP PRN 02/03/17 Metoprolol Tartrate [Lopressor 50 mg Tablet] 25 mg PO Q12 02/03/17 Rivaroxaban [Xarelto] 20 mg PO WLUNCH 02/03/17 Simvastatin [Zocor 20 mg Tablet] 20 mg PO QHS 02/03/17 Warfarin Sodium [Coumadin 5 mg Tablet] 5 mg PO DAILY 02/03/17 Allergies/Adverse Reactions: NSAIDS (Non-Steroidal Anti-Inflamma [Nsaids] Allergy (Severe, Verified 02/02/17 19:58) Physical Exam Vital Signs: Temp Pulse Resp BP Pulse Ox 98.2 F 50 L 18 130/60 H 96 02/02/17 18:59 02/02/17 18:59 02/03/17 03:31 02/03/17 03:31 02/03/17 03:31 Results Impressions: Chest X-Ray 02/02/17 20:33 IMPRESSION: Chronic interstitial lung disease. Assessment & Plan - Diagnosis (1) Abnormal urinalysis Is this a current diagnosis for this admission?: YesPlan: Urine culture. Will forego antibiotics at this point in time. (2) Atrial fibrillation with rapid ventricular response Is this a current diagnosis for this admission?: YesPlan: Continue Cardizem drip at present. Wean as tolerated. Serial troponins. Consider cardiology consult. I have strongly encouraged patient not to get out of bed without notifying staff , to avoid a fall with injury. Knee high SCDs for DVT prophylaxis, ; with patient on systemic anticoagulation, no need for Lovenox or heparin at this point in time. Impression and plans were discussed with patient, who concurs. Time spent in evaluation and management of patient: 61 minutes. (3) Hypokalemia Is this a current diagnosis for this admission?: YesPlan: Potassium replacement. Follow-up chemistry. (4) Supratherapeutic INR Is this a current diagnosis for this admission?: YesPlan: We'll obviously hold Coumadin for now. Follow-up PT/INR. - Inpatient Certification Based on my medical assessment, after consideration of the patient's comorbidities, presenting symptoms, or acuity I expect that the services needed warrant INPATIENT care.: Yes I certify that my determination is in accordance with my understanding of Medicare's requirements for reasonable and necessary INPATIENT services [42 CFR 412.3e].: Yes Medical Necessity: Need Close Monitoring Due to Risk of Patient Decompensation, Need For Continuous Telemetry Monitoring, Risk of Complication if Not Cared For in Hospital, Risk of Diagnosis Which Will Require Inpatient Eval/Care/Monitoring Post Hospital Care: D/C or Transfer Summary
[2017-02-03] MEDS ORDERED: POTASSIUM CHLORIDE 20 MEQ/15 ML UDCUP PO ONE (04:00)
[2017-02-03] MEDS ORDERED: NORMAL SALINE 1000 ML 1,000 ML IV PRN (07:52)
[2017-02-03] MEDS ORDERED: METOPROLOL TARTRATE 25 MG TABLET PO ONE (08:15)
[2017-02-03 09:57] LABS: PROTHROMBIN TIME 23.3 SEC (11.4-15.4)
[2017-02-03 09:59] LABS: ANION GAP 12 (5-19); BLOOD UREA NITROGEN 10 mg/dL (7-20); CALCIUM 8.8 mg/dL (8.4-10.2); CARBON DIOXIDE 24 mmol/L (22-30); CHLORIDE 108 mmol/L (98-107); CREATININE RESULT 0.51 mg/dL (0.52-1.25); GLUCOSE 132 mg/dL (75-110); POTASSIUM 3.8 mmol/L (3.6-5.0)
[2017-02-03] MEDS ORDERED: CEFTRIAXONE 1 GM/D5W RTU 50 ML IV SCH (10:00)
[2017-02-03] MEDS ORDERED: DOCUSATE SODIUM 100 MG CAPSULE PO SCH (10:00)
[2017-02-03] MEDS ORDERED: METOPROLOL TARTRATE 25 MG TABLET PO SCH ×2 (10:00→12:00)
[2017-02-03] MEDS ORDERED: CALCIUM GLUCONATE 1000 MG/10 ML INJ IV ONE (12:53)
[2017-02-03] MEDS ORDERED: ATROPINE SULFATE INJ 1 MG/1 ML VIAL ONE (12:53)
[2017-02-03] MEDS ORDERED: ATROPINE SULFATE INJ 1 MG/1 ML VIAL IV ONE (12:56)
[2017-02-03] MEDS ORDERED: CALCIUM GLUCONATE 1,000 MG in DEXTROSE 5%-WATER 50 ML IV ONE (12:57)
--- NOTE | 2017-02-03 13:30 | EKG REPORT ---
SEVERITY:- ABNORMAL ECG - ATRIAL FIBRILLATION ABNORMAL T, CONSIDER ISCHEMIA, ANTERIOR LEADS PROLONGED QT INTERVAL : Confirmed by: Osvaldo Godinez MD 03-Feb-2017 13:29:52
--- NOTE | 2017-02-03 17:06 | PDOC TRANSFER SUMMARY ---
General Admission Date/PCP: 02/03/17 03:32 CELIA DORANTES MD Admission Date: 02/03/17 Transfer Date: 02/03/17 Accepting Facility: [facility] Accepting Physician: Dr. 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 Is this a current diagnosis for this admission?: Yes (7) Hyperlipidemia Is this a current diagnosis for this admission?: Yes - Transfer Medications Home Medications: Famotidine [Pepcid 20 mg Tablet] 20 mg PO QHS 02/03/17 Hydroxyzine HCl [Atarax 25 mg Tablet] 12.5 mg PO Q8HP PRN 02/03/17 Metoprolol Tartrate [Lopressor 50 mg Tablet] 25 mg PO Q12 02/03/17 Rivaroxaban [Xarelto] 20 mg PO WLUNCH 02/03/17 Simvastatin [Zocor 20 mg Tablet] 20 mg PO QHS 02/03/17 Warfarin Sodium [Coumadin 5 mg Tablet] 5 mg PO DAILY 02/03/17 Transfer Medications: Current Medications Acetaminophen (Tylenol 325 Mg Tablet) 650 mg PO Q4HP PRN PRN Reason: FOR PAIN OR TEMP Stop: 03/05/17 03:30 Albuterol/Ipratropium (Duoneb 3 Ml Ampul) 3 ml NEB RTQ4HP PRN PRN Reason: SHORTNESS OF BREATH Stop: 03/05/17 03:30 Docusate Sodium (Colace 100 Mg Capsule) 100 mg PO BID ANDREA Stop: 03/05/17 09:59 Last Admin: 02/03/17 10:06 Dose: 100 mg Diltiazem HCl (Cardizem Rtu Inj 125 Mg-D5w 125 Ml Premix) 125 mls @ 0 mls/hr IV CONTINUOUS PRN; Protocol; Titrate PRN Reason: THIS MED IS NOT "PRN" Stop: 03/05/17 03:30 Last Admin: 02/03/17 04:02 Dose: 125 ml Ceftriaxone Sodium/Dextrose (Rocephin Rtu 1 Gm/D5w 50 Ml Premix) 50 mls @ 100 mls/hr IV DAILY ANDREA Stop: 02/10/17 09:59 Last Admin: 02/03/17 10:08 Dose: 50 ml Sodium Chloride (Nacl 0.9% 1000 Ml Iv Soln) 1,000 mls @ 100 mls/hr IV CONTINUOUS PRN PRN Reason: THIS MED IS NOT "PRN" Stop: 03/05/17 07:51 Magnesium Hydroxide (Milk Of Magnesia 30 Ml Udcup) 30 ml PO Q48HP PRN PRN Reason: HEARTBURN Stop: 03/05/17 03:30 Metoprolol Tartrate (Lopressor 25 Mg Tablet) 25 mg PO Q6 ANDREA Stop: 03/05/17 11:59 Sodium Chloride (Saline Flush 2.5 Ml Monoject Prefil Syrin) 2.5 ml IV Q8 ANDREA Stop: 03/05/17 05:59 Last Admin: 02/03/17 05:45 Dose: Not Given - Allergies Allergies/Adverse Reactions: NSAIDS (Non-Steroidal Anti-Inflamma [Nsaids] Allergy (Severe, Verified 02/02/17 19:58) - Diet/Activity Discharge Diet: Cardiac Discharge Activity: Bedrest Hospital Course Hospital Course: The patient was admitted to the [facility]. The patient was restarted back on her metoprolol. Cardizem drip was weaned. She started to develop bradycardia and hypotension. Cardiology was consulted, an impression of complete heart block was made, Cardizem and metoprolol was discontinued. Patient was given atropine , and calcium gluconate. Patient's heart rate improved in the 60s, and systolic blood pressure normalized. Cardiology recommended pacemaker placement , therefore patient's public affairs specialist in [place] was contacted, Dr. Gray cardiology service agreed for transfer, hospitalist accepted the patient for this service. In terms of her abnormal urinalysis, she was started on ceftriaxone. The rest of the hospital stays unremarkable Physical Exam Vital Signs: Temp Pulse Resp BP Pulse Ox 98.2 F 102 H 25 H 107/49 L 96 02/02/17 18:59 02/03/17 16:00 02/03/17 16:00 02/03/17 13:56 02/03/17 16:00 General appearance: PRESENT: no acute distress, cooperative Head exam: PRESENT: normocephalic Eye exam: PRESENT: EOMI Mouth exam: PRESENT: moist, neck supple Neck exam: ABSENT: JVD Respiratory exam: PRESENT: clear to auscultation ariel Cardiovascular exam: PRESENT: irregular rhythm. ABSENT: gallop GI/Abdominal exam: PRESENT: soft. ABSENT: tenderness Extremities exam: PRESENT: other - Trace lower extremity edema Neurological exam: PRESENT: alert, awake, oriented to person, oriented to place , oriented to time, oriented to situation Skin exam: PRESENT: dry, warm. ABSENT: cyanosis Results Laboratory Results: 02/03/17 09:25 02/03/17 09:25 Sodium 144.0 Potassium 3.8 Chloride 108 H Carbon Dioxide 24 Anion Gap 12 BUN 10 Creatinine 0.51 L Est GFR ( Amer) > 60 Est GFR (Non-Af Amer) > 60 Glucose 132 H Calcium 8.8 02/03/17 09:25 Troponin I < 0.012 Impressions: Chest X-Ray 02/02/17 20:33 IMPRESSION: Chronic interstitial lung disease. Plan Discharge Plan: Transferred to [facility] in [place] for further management. Time Spent: Less than 30 Minutes
[2017-02-03 21:43] VITALS: BP 145/88
--- NOTE | 2017-02-04 03:24 | CONSULTATION REPORT E ---
Consultation Report NAME: GENNY INFANTE : 1930 AGE: 86Y DATE: 02/03/2017 ED11 A TO: HELEN GALVAN M.D. FROM: ROMERO MORALES M.D. Requesting Physician CHIEF COMPLAINT: Patient initially with the complaints of generalized weakness and palpitations, found to be in atrial fibrillation with rapid ventricular response, subsequently developed bradycardia with Cardizem drip and metoprolol. Hence, the cardiology consulted. Most of the history obtained from the patient's . HISTORY OF PRESENT ILLNESS: Patient is an 86-year-old female with a history of atrial fibrillation, as per the , chronic, initially was on Coumadin and had some nosebleed. Subsequently, the Coumadin was stopped and the patient was started on Xarelto. She also was on a small dose of metoprolol 25 mg p.o. q. 12 hours for her atrial fibrillation. The patient over the last 24 hours started complaining of generalized feeling of weakness and easy fatigability and was found to be in atrial fibrillation with rapid ventricular response. She complains of palpitations off and on and she also has history of mild hypertension as per the , controlled with metoprolol. She has no PND or orthopnea. She denies any shortness of breath or chest pains. She does have a history of coronary artery disease, but no anginal symptoms recently. The patient denies any wheezing or fever, chills, or rigors or chest pain or abdominal pain. There is no PND or orthopnea. The patient on this admission was found to have UTI due to abnormal urinalysis, cultures are pending. The patient initially was placed on Cardizem 7.5 mg per hour, Cardizem drip after a bolus. Around 12:55 p.m., developed significant bradycardia with hypotension with a blood pressure being in the 70s and heart rate going into 30s. At that time, EKG was taken, shows regularization of RR intervals, which suggests complete heart block in a patient with atrial fibrillation with junctional escape rhythm. The patient was given 1 mg of atropine and also was given calcium gluconate 1 amp with IV in 50 mL of D5W and subsequently heart rate picked into the 50s and the blood pressure came up to above 100 and the patient felt much better. When she had heart rate down into the 30s and blood pressures 70s, she felt very dizzy, but there was no syncope. PAST MEDICAL HISTORY: Positive for history of atrial fibrillation. It is not clear whether this is chronic atrial fibrillation or paroxysmal atrial fibrillation, most likely it is chronic. The patient was initially on metoprolol 25 mg p.o. q. 12 hours, which in the last admission as per the , in the hospital was increased and the patient developed bradycardia and hypotension and the dose was decreased to 25 mg p.o. q. 12 hours. Initially, the patient was on Coumadin for stroke reduction/prevention and had some nosebleed and subsequently, the Coumadin was stopped and the patient was placed on Xarelto. The patient's INR is 1.98 and her home medications state that she is on both Coumadin and Xarelto. She also has history of mild hypertension as mentioned earlier. There is also history of coronary artery disease with no history of MT or anginal symptoms. There is no history of congestive heart failure. No history of diabetes mellitus. No history of thyroid disease. No history of TIA or CVA. No history of anxiety or depression. She seems to have intermittent itching and is on Atarax for that. The etiology of this was not known. She has no chronic kidney disease. She has a past history of GI bleed secondary to use of nonsteroidal anti-inflammatory agents. She has GERD, but no recent GI bleed. PAST SURGICAL HISTORY: Positive for bilateral cataract surgery and cholecystectomy. FAMILY HISTORY: Negative for hypertension, CAD, or stroke in both the parents and also in her siblings. ALLERGIES: SHE IS ALLERGIC TO NONSTEROIDAL ANTI-INFLAMMATORY AGENTS. MEDICATIONS: Her medications in the hospital include: 1. Tylenol 650 mg p.o. q. 4 hours p.r.n. 2. She is on Colace 100 mg p.o. b.i.d. 3. She is on ceftriaxone 1 g IV piggyback daily. 4. She was on a Cardizem drip, which is now being stopped and also the patient received atropine for bradycardia 1 mg and also 1 amp of calcium gluconate in 50 mL of D5W that is 5% dextrose water intravenously. 5. She also is on normal saline. She has received a bolus of normal saline and also is on normal saline at 100 mL per hour. 6. For low potassium, on potassium chloride 20 mEq and 50 mL IV rider x1. 7. She is also on ipratropium, albuterol sulfate 3 mL nebulizer treatment q. 4 hours p.r.n. 8. She is also on milk of magnesia 30 mL p.o. q. 4 hours p.r.n. 9. She also got 1 dose of metoprolol prior to becoming bradycardic and she is also on metoprolol 25 mg p.o. q. 12 hours, which has BEEN stopped. 10. She is on potassium chloride 20 mEq p.o. x1. SOCIAL HISTORY: The patient does not smoke. There is no history of EtOH abuse. There is no history of recreational or street drug abuse. ADVANCE DIRECTIVE: The patient is a FULL CODE. Her is the surrogate health care decision maker. REVIEW OF SYSTEMS: CONSTITUTIONAL: Denies any fever, chills or rigors, but complains of generalized fatigue and weakness. HEAD: Denies any history of headaches or head injury, but complains of dizziness when the heart rate was down. EYES: No history of amblyopia, diplopia. No history of amaurosis fugax. EARS: No history of hearing loss. No history of tinnitus. No history of vertigo. No history of recurrent ear infections. NOSE: There is a prior history of minor nosebleed, is on Coumadin, which has not recurred on Xarelto, as per the . She has no history of hay fever. No history of nasal polyps. MOUTH: No altered taste sensation. No history of ulcers in the mouth. No history of bleeding from the gums. THROAT: No history of odynophagia, dysphagia. No history of recurrent sore throat. SKIN: History of intermittent pruritus. She is on Atarax p.r.n. No history of psoriasis. No history of yellowish discoloration of the skin. No history of skin cancer. NECK: No history of neck pain. No history of symptoms of C-spine arthritis. No history of goiter. No history of painful or painless swelling of the neck. LUNGS: No history of asthma or COPD. No history of wheezing. No history of cough or sputum production. No history of sleep apnea. No history of pulmonary embolism. No history of hemoptysis. No history of pleuritic chest pain. CARDIAC: History of atrial fibrillation. It is not clear whether the patient has chronic atrial fibrillation or paroxysmal atrial fibrillation. 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 She has symptomatic bradycardia, which resolved with atropine and calcium gluconate, and by stopping the patient's metoprolol and Cardizem. She has a history of mild hypertension as per the , which has controlled with 25 mg p.o. q. 12 hours of metoprolol only. She has a history of hyperlipidemia. Her reports that she was diagnosed with CAD, but did not require any catheterization or stents. There are no anginal symptoms or MT. No history of congestive heart failure. History of palpitations intermittently present, especially in the last 24 hours with generalized fatigue and weakness. She has no history of PND, orthopnea, or leg edema. History of dizziness present, but no syncope. GASTROINTESTINAL: Past history of GI bleed due to nonsteroidal agents. No recurrence since that was stopped. She has a history of GERD. There is no history of hepatitis. No history of fatty food intolerance. No history of GI bleed. No history of altered bowel movements. MUSCULOSKELETAL: Denies any history of arthritis or collagen vascular disease. RENAL: No history of chronic kidney disease. GENITOURINARY: No history of hematuria, pyuria, dysuria, but the patient's urinalysis is abnormal, and suggests UTI. ENDOCRINE: No history of diabetes mellitus or hyper or hypothyroidism. No history of polydipsia or polyuria. No history of heat or cold intolerance. No history of hirsutism. No history of excessive sweating. CENTRAL NERVOUS SYSTEM: No history of TIA or CVA. No history of sleep apnea. No history of headaches, migraines or seizures. No history of gait imbalance. CARDIAC: No history of leg edema. No history of CHF. PSYCHIATRY: No history of anxiety or depression. No history of suicidal ideation or homicidal ideation. VASCULAR: No history of DVT. No history of symptoms of peripheral vascular disease such as calf or buttock claudication. HEMATOLOGICAL: The patient does have easy bruising, but no major bleeding and no clotting disorders. PHYSICAL EXAMINATION: GENERAL: On examination, the patient at present is well built and well nourished. She does not seem to be in any acute distress once her heart rate came up from the 30s. VITAL SIGNS: Earlier, her heart rate went down to 30s on IV Cardizem. Subsequently, after giving, the blood pressure was in the 70s. Subsequently with giving atropine, the patient's heart rate came to 57. Her blood pressure was like 105/52, respirations were 19 per minute, O2 sats were 99% on room air. HEAD: Atraumatic, normocephalic. EYES: Pupils are equal, round, regular, and reactive to light and accommodation. Extraocular movements are normal. There is no conjunctival pallor. There is no sclerae icterus. EARS: Tympanic membranes are intact. External auditory canals are clear. There are no lesions of pinna. NOSE: There are no nasal polyps. There is no deviated nasal septum. There is no inflammation of the nasal mucous membranes. MOUTH: Mucous membranes of the mouth are dry. Tongue is dry. There are no ulcers in the mouth. There is no bleeding from the gums. THROAT: There is no redness of the oropharynx. There are no exudates in the throat. SKIN: There are no skin rashes or skin lesions. There is no petechia or ecchymosis. NECK: Supple. There is no JVD. Carotids are equal. There is no bruit. There is no goiter. There is no lymphadenopathy. Trachea is central. LUNGS: Clear to auscultation and percussion. HEART: S1 and S2 are heard. S1 has a variable intensity. There is no S3 gallop. There is no S4 gallop. There is systolic murmur in the left sternal border in the apex. There is no rub. ABDOMEN: Soft and nontender. There is no hepatosplenomegaly. Bowel sounds are well heard. There is no rebound, guarding or rigidity. EXTREMITIES: Femorals are diminished. There are no femoral bruits. Leg pulses are diminished. There is no pedal edema. There is no DVT or cellulitis. There is no calf tenderness. CENTRAL NERVOUS SYSTEM: The patient is conscious, awake, alert, and oriented x3 with no focal deficits. PSYCHIATRIC: The patient's judgment and insight seem to be intact. She does not appear to be anxious or depressed. DIAGNOSTIC TEST RESULTS: The patient's chest x-ray shows diffuse interstitial pattern and bronchiectasis of lungs. There is no evidence of congestive heart failure. The patient's initial EKG showed atrial fibrillation with a ventricular response of 141, anterior infarct versus replacement. There are diffuse repolarization abnormalities, most likely to atrial fibrillation with rapid ventricular response. Her EKG done at the time of her bradycardia shows regularization of the RR intervals. This denotes an atrial fibrillation, complete heart block with junctional escape rhythm. Her urinalysis is abnormal suggestive of urinary tract infection. Urine cultures are awaited. The white count is 5700, hemoglobin is 13.1, hematocrit is 40.4 and the platelet count is 203,000. The patient's sodium is 144.0, potassium is 3.8, chloride is 108, and CO2 is 24. The patient's BUN is 10, creatinine is 0.51, and GFR is greater than 60. Her blood sugar is 132. Calcium is 8.8. Her liver function tests are normal. Her cardiac enzymes have been negative x3. Her anti-proBNP is 3520. The patient's ProTime initially was 43.4. INR was 4.30. Subsequently today, the patient's PT is 23.3, INR is 1.98. IMPRESSION: 1. ATRIAL FIBRILLATION WITH RAPID VENTRICULAR RESPONSE WITH THE PATIENT DEVELOPING COMPLETE HEART BLOCK WITH JUNCTIONAL ESCAPE RHYTHM, CAUSING BRADYCARDIA WITH HYPOTENSION. The plan is to hold the SA and AV renetta blocking agents and recommend that patient will be transferred [facility] placement. The procedures risks and benefits have been discussed with the patient and patient's of pacemaker implantation in detail. 2. SYMPTOMATIC BRADYCARDIA WITH REGULARIZATION OF RR INTERVALS IN A PATIENT WITH ATRIAL FIBRILLATION, WHICH SUGGESTS COMPLETE HEART BLOCK WITH JUNCTIONAL ESCAPE RHYTHM. 3. SICK SINUS SYNDROME AND AV RENETTA DISEASE, CAUSING TACHY-ENMANUEL SYNDROME. Plan is to hold the patient's metoprolol and Cardizem and as mentioned earlier, we will strongly recommend the patient will be transferred [facility] for [facility] evaluation by her rn ccu, who is in [facility] for VVI permanent pacemaker placement. 4. SUPRATHERAPEUTIC INR ON ADMISSION. Today, the INR is 1.98. Yesterday, it was 4.30. Most likely, the patient's is confused and is taking both Coumadin and Xarelto. I would hold those both, especially in view of the patient most likely requiring a permanent pacemaker placement, and this is the plan. 5. HYPOKALEMIA, ON ADMISSION ON 02/02/2017 WITH POTASSIUM OF 3.4, NOW NORMALIZED. 6. MILD HYPERTENSION. At present, blood pressure is on the lower side. We will hold all blood pressure medications such as metoprolol. 7. CORONARY ARTERY DISEASE BY HISTORY WITH NO HISTORY OF MYOCARDIAL INFARCTION OR ANGINAL SYMPTOMS. 8. HYPERLIPIDEMIA. As mentioned earlier, we would hold the patient's Coumadin and Xarelto and refer back to her rn ccu to decide what to start on. Note the patient's INR is 1.98. Hence if the patient's needs a permanent pacemaker, they can start chronic anticoagulation after that. 10. GASTROESOPHAGEAL REFLUX DISEASE BY HISTORY. 11. URINARY TRACT INFECTION BY URINE EXAM. Continue antibiotics. 12. DEHYDRATION, MOST LIKELY DUE TO URINARY TRACT INFECTION. Continue IV fluids 13. HISTORY OF GLAUCOMA. Note that the patient is not on any eye drops. We will leave that to the patient's garment folder. 14. PAST HISTORY OF GASTROINTESTINAL BLEED SECONDARY TO NONSTEROIDAL ANTI-INFLAMMATORY AGENTS. We would strongly recommend that the patient is to avoid this in the future, but the patient has not had any bleeding with Xarelto. Also, she had some mild nosebleed with Coumadin. Note, I was there in the emergency room when the patient had bradycardia and she acted promptly. This is a case with a high-complexity medical decision making, especially in view of having the patient on a permanent pacemaker and explained that to them. The patient was seen from 12:55 p.m. to 1:40 p.m. Her medications were reviewed and adjusted and medications were given. More than 50% of the time was spent on direct patient care, on also discussions and coordinating care with the hospitalist taking care of the patient. I strongly recommend that the patient be transferred to [facility], where her Cardiology is for a permanent pacemaker placement. DISPOSITION: The patient is a FULL CODE. Her is the surrogate healthcare decision maker. There was no time to discuss the full details of advanced care planning since the patient was in a critical condition with hypotension and bradycardia and also arrangements being made to transfer the [facility] to [facility], which is [facility] in [place] for permanent pacemaker placement. Note: 45 minutes spent on this patient in total. DICTATING PHYSICIAN: HELEN GALVAN M.D. [id number] OSCAR#: [id number] ID: [id number] JOB#: [id number] ACCT: [id number] cc:HELEN GALVAN M.D. >
== END 2017-02-03 21:30 | disposition short-term general hospital (02) | DRG 309 ==
LOC: ER 18:48 → EH 02-03 01:01 → UNDOADMIN 02-03 01:01 → EH 02-03 03:32
PROVIDERS: ADMIT Family Medicine; ATTEND Family Medicine
DX: I44.2 Atrioventricular block, complete (principal); N39.0 Urinary tract infection, site not specified; I48.2 Chronic atrial fibrillation; E78.5 Hyperlipidemia, unspecified; J45.909 Unspecified asthma, uncomplicated; R23.3 Spontaneous ecchymoses; I25.10 Atherosclerotic heart disease of native coronary artery without angina pectoris; T45.515A Adverse effect of anticoagulants, initial encounter; E87.6 Hypokalemia; R79.1 Abnormal coagulation profile; K21.9 Gastro-esophageal reflux disease without esophagitis; I95.9 Hypotension, unspecified; R00.1 Bradycardia, unspecified; I49.5 Sick sinus syndrome; Z79.02 Long term (current) use of antithrombotics/antiplatelets; E86.0 Dehydration; H40.9 Unspecified glaucoma; Z79.51 Long term (current) use of inhaled steroids; Z90.49 Acquired absence of other specified parts of digestive tract; Z82.49 Family history of ischemic heart disease and other diseases of the circulatory system; Z87.891 Personal history of nicotine dependence; Z79.899 Other long term (current) drug therapy; Z88.8 Allergy status to other drugs, medicaments and biological substances
CPT/HCPCS: 36415; 71020; 80048; 80076; 81001; 83735; 83880; 84443; 84484; 85025; 85610; 87086; 93005; 93010; 96361; 96365; 96366; 99291; J0461; J0610; J0696; J3480; J3490; J7030

== ENCOUNTER → 2018-03-27 | Outpatient (CLI) | payer MEDICARE, BC ==
[2018-03-27 07:59] LABS: ABSOLUTE EOSINOPHILS # (AUTO) 0.1 10^3/uL (0.0-0.6); ABSOLUTE LYMPHOCYTES (AUTO) 1.1 10^3/uL (0.5-4.7); ABSOLUTE MONOCYTES (AUTO) 0.5 10^3/uL (0.1-1.4); ABSOLUTE NEUT (AUTO) 3.8 10^3/uL (1.7-8.2); BASOPHILS % (AUTO) 0.8 % (0-2); EOSINOPHILS % (AUTO) 2.1 % (0-6); HEMOGLOBIN 13.8 g/dL (12.0-15.5); LYMPHOCYTES % (AUTO) 19.2 % (13-45); MEAN CORPUSCULAR HGB CONC 33.6 g/dL (32.0-36.0); MEAN CORPUSCULAR VOLUME 89 fl (80-97); MONOCYTES % (AUTO) 9.1 % (3-13); PLATELET COUNT 204 10^3/uL (150-450); RED BLOOD COUNT 4.59 10^6/uL (3.72-5.28); RED CELL DISTRIBUTION WIDTH 12.5 % (11.5-14.0); SEGMENTED NEUTROPHILS % (AUTO) 68.8 % (42-78); TOTAL CELLS COUNTED % (AUTO) 100 %; WHITE BLOOD COUNT 5.5 10^3/uL (4.0-10.5)
[2018-03-27 08:16] LABS: ALANINE AMINOTRANSFERASE 29 U/L (9-52); ALKALINE PHOSPHATASE 79 U/L (38-126); ANION GAP 11 (5-19); ASPARTATE AMINO TRANSFERASE 27 U/L (14-36); BILIRUBIN,DIRECT 0.3 mg/dL (0.0-0.4); BILIRUBIN,TOTAL 0.9 mg/dL (0.2-1.3); BLOOD UREA NITROGEN 17 mg/dL (7-20); CALCIUM 9.4 mg/dL (8.4-10.2); CARBON DIOXIDE 29 mmol/L (22-30); CHLORIDE 106 mmol/L (98-107); CHOLESTEROL 185.01 mg/dL (0-200); GLUCOSE 100 mg/dL (75-110); POTASSIUM 4.7 mmol/L (3.6-5.0); SODIUM 145.7 mmol/L (137-145); TOTAL PROTEIN 7.5 g/dL (6.3-8.2); TRIGLYCERIDES 112 mg/dL (<150)
[2018-03-27 08:27] LABS: DIRECT LDL 99 mg/dL (<100)
== END ==
LOC: OD 07:19
PROVIDERS: ATTEND Internal Medicine
DX: I48.0 Paroxysmal atrial fibrillation (principal); E78.00 Pure hypercholesterolemia, unspecified; J44.9 Chronic obstructive pulmonary disease, unspecified; Z79.899 Other long term (current) drug therapy
CPT/HCPCS: 36415; 80053; 80061; 85025